=== PATIENT | male | born 1960 | race Caucasian/White ===

== ENCOUNTER 2020-07-21 10:43 | Emergency (ER) | payer OTHER ==
[~2020-07-21] VITALS: Ht 175.3 cm; Wt 80.3 kg
--- NOTE | 2020-07-21 10:59 | Emergency Room Report ---
History of Present Illness General Chief Complaint: Fever Source: Patient, EMS Present Illness HPI 59-year-old male history of HIV, hypertension, presents from half-way with fever/chills x1 day, no known aggravating relieving factors severity is moderate, constant patient endorses nausea, generalized lower abdominal pain achy in nature no diarrhea no dysuria, unable to really describe abdominal pain severity is mild, ongoing cannot state whether it appeared with a fever patient presents for evaluation and treatment Allergies: Coded Allergies: No Known Allergies (Unverified , 07/21/20) COVID-19 Screening Contact w/high risk pt: No Experienced COVID-19 symptoms?: Yes COVID-19 Testing performed RECREATION ADVISER: Yes - jul 15 COVID-19 Screening: Negative COVID-19 COVID-19 Testing Source: [facility] Patient History Past Medical History: see triage record Reviewed Nursing Documentation: PMH: Agreed; PSxH: Agreed Nursing Documentation-PMH Past Medical History: No History, Except For Hx Hypertension: Yes Hx Cancer: Yes - lung, kidney Review of Systems All Other Systems: negative except mentioned in HPI Physical Exam Vital Signs Date Time Temp Pulse Resp B/P (MAP) Pulse Ox O2 Delivery O2 Flow Rate FiO2 07/21/20 10:44 98.2 103 26 96/63 (74) 98 Nasal Cannula 2.0 Sp02 EP Interpretation: reviewed, normal General Appearance: well appearing, no apparent distress, alert Head: normocephalic, atraumatic Eyes: bilateral eye PERRL, bilateral eye EOMI ENT: uvula midline, moist mucus membranes Neck: supple, thyroid normal, supple/symm/no masses Respiratory: lungs clear, no respiratory distress, no retraction, no accessory muscle use Cardiovascular #1: normal peripheral pulses, regular rate, rhythm, no edema, no gallop, no murmur Gastrointestinal: non tender, soft, no guarding, no rebound Musculoskeletal: normal inspection Neurologic: alert, oriented x3 Psychiatric: mood/affect normal Skin: no rash, warm/dry Procedures Critical Care Time Critical Care Time Given the critical condition in which the patient arrived, the patient was immediately assessed by myself and the nurse, and cardiac monitoring initiated due to the potential for rapid decompensation of the patient's clinical condition. During the course of the patient's stay, I spent a considerable amount of time at the bedside performing serial re-evaluations of the patient's hemodynamic and clinical status because of the recognized potential threat to life or limb in this condition. I then had a chance to review not only all of the available current laboratory and radiographic studies obtained today, but I also reviewed old records available to me at the time. Additionally, any ancillary information available including asphalt raker records were reviewed. Sequential vital signs were obtained. Critical Care time of 31 minutes was performed exclusive of billable procedures. Medical Decision Making Diagnostic Impression: Primary Impression: Fever Qualified Codes: R50.9 - Fever, unspecified Additional Impressions: Anemia Qualified Codes: D64.9 - Anemia, unspecified Metastatic cancer Qualified Codes: C79.9 - Secondary malignant neoplasm of unspecified site ER Course 59-year-old male history of RCC, status post right partial and complete nephrectomy, HIV, spindle cell tumor of the lung, presents with generalized weakness, patient found to be anemic, CT brain shows metastatic lesions to the brain without any mass-effect Patient started on blood transfusion, cefepime and Vanco given for fever Initially patient to be transferred to [facility] however Dr. Nettles stated patient may be better suited where he received care initially [facility] [place] 1:56pm Laboratory Tests Test 07/21/20 11:10 07/21/20 13:10 White Blood Count 22.0 K/UL (4.8-10.8) H Red Blood Count 1.89 M/UL (4.70-6.10) L Hemoglobin 4.7 G/DL (14.2-18.0) *L Hematocrit 16.2 % (42.0-52.0) L Mean Corpuscular Volume 86 FL (80-99) Mean Corpuscular Hemoglobin 25.0 PG (27.0-31.0) L Mean Corpuscular Hemoglobin Concent 29.2 G/DL (32.0-36.0) L Red Cell Distribution Width 22.5 % (11.6-14.8) H Platelet Count 804 K/UL (150-450) H Mean Platelet Volume 4.0 FL (6.5-10.1) L Neutrophils (%) (Auto) % (45.0-75.0) Lymphocytes (%) (Auto) % (20.0-45.0) Monocytes (%) (Auto) % (1.0-10.0) Eosinophils (%) (Auto) % (0.0-3.0) Basophils (%) (Auto) % (0.0-2.0) Differential Total Cells Counted 100 Neutrophils % (Manual) 79 % (45-75) H Lymphocytes % (Manual) 10 % (20-45) L Monocytes % (Manual) 8 % (1-10) Eosinophils % (Manual) 3 % (0-3) Basophils % (Manual) 0 % (0-2) Band Neutrophils 0 % (0-8) Platelet Estimate Increased H Platelet Morphology See comment Giant Platelets Occasional Polychromasia 1+ Hypochromasia 2+ Anisocytosis 2+ Prothrombin Time 13.4 SEC (9.30-11.50) H Prothrombin Time INR 1.2 (0.9-1.1) H Activated Partial Thromboplast Time 27 SEC (23-33) Urine Color Pale yellow Urine Appearance Clear Urine pH 5 (4.5-8.0) Urine Specific Ming[place] 1.020 (1.005-1.035) Urine Protein 1+ (NEGATIVE) H Urine Glucose (UA) Negative (NEGATIVE) Urine Ketones 1+ (NEGATIVE) H Urine Blood Negative (NEGATIVE) Urine Nitrite Negative (NEGATIVE) Urine Bilirubin Negative (NEGATIVE) Urine Urobilinogen 8 MG/DL (0.0-1.0) H Urine Leukocyte Esterase Negative (NEGATIVE) Urine RBC 0 /HPF (0 - 0) Urine WBC 0-2 /HPF (0 - 0) Urine Squamous Epithelial Cells Occasional /LPF Urine Calcium Oxalate Crystals Occasional /LPF (NONE) Urine Bacteria Occasional /HPF (NONE) Sodium Level 134 MMOL/L (136-145) L Potassium Level 3.9 MMOL/L (3.5-5.1) Chloride Level 98 MMOL/L (98-107) Carbon Dioxide Level 28 MMOL/L (21-32) Anion Gap 8 mmol/L (5-15) Blood Urea Nitrogen 23 mg/dL (7-18) H Creatinine 1.3 MG/DL (0.55-1.30) Estimated Glomerular Filtration Rate 56.9 mL/min (>60) Glucose Level 120 MG/DL (74-106) H Lactic Acid Level 4.50 mmol/L (0.4-2.0) H 4.00 mmol/L (0.66-2.22) H Calcium Level 10.3 MG/DL (8.5-10.1) H Phosphorus Level 3.4 MG/DL (2.5-4.9) Magnesium Level 1.7 MG/DL (1.8-2.4) L Total Bilirubin 0.2 MG/DL (0.2-1.0) Aspartate Amino Transferase (AST) 25 U/L (15-37) Alanine Aminotransferase (ALT) 21 U/L (12-78) Alkaline Phosphatase 110 U/L (46-116) Total Creatine Kinase 8 U/L (26-308) L Creatine Kinase MB < 0.5 NG/ML (0.0-3.6) Creatine Kinase MB Relative Index 6.2 Troponin I 0.000 ng/mL (0.000-0.056) Pro-B-Type Natriuretic Peptide 699 pg/mL (0-125) H Total Protein 5.9 G/DL (6.4-8.2) L Albumin 1.3 G/DL (3.4-5.0) L Globulin 4.6 g/dL Albumin/Globulin Ratio 0.3 (1.0-2.7) L Lipase 115 U/L (73-393) Microbiology Date/Time Source Procedure Growth Status 07/21/20 11:10 Nasopharynx SARS-CoV-2 RdRp Gene Assay - Final Complete EKG Diagnostic Results Troponin ordered: Yes When was troponin ordered?: Jul 21, 2020 - 1056 EKG Time: 10:57 EP Interpretation: NSR, rate 100, QTc 417, no acute ST elevations, normal axis Rhythm Strip Diag. Results Rhythm Strip Time: 11:18 EP Interpretation: yes Rate: 97 Rhythm: NSR, no PVC's, no ectopy Chest X-Ray Diagnostic Results Chest X-Ray Diagnostic Results : Chest X-Ray Ordered: Yes # of Views/Limited/Complete: 1 View Indication: Chest Pain EP Interpretation: Yes Interpretation: no consolidation, no effusion, no pneumothorax, no acute cardiopulmonary disease Impression: No acute disease Electronically Signed by: Javier Reyes MD CT/MRI/US Diagnostic Results CT/MRI/US Diagnostic Results : Impression Procedure: CT Abdomen Pelvis w/Contrast Clinical Indication: Abdominal pain, weakness, dysuria, fever Technique: No oral contrast utilized, per emergency room physician request IV administration nonionic contrast. Venous phase spiral acquisition obtained through the abdomen and pelvis. Multiplanar reconstructions were generated. Total dose length product 313 mGycm. CTDIvol(s) 5 mGy. Dose reduction achieved using automated exposure control Comparison: none Findings: There is evidence of extensive disseminated malignancy. A staple line in the right retroperitoneum suggests prior right nephrectomy. However, there is a large mass occupying the right renal fossa that measures 10 x 6.7 x 9 cm, demonstrates evidence of central necrosis. At least 2 masses are seen within the mesentery, both of which surround small bowel but do not appear to result in obstruction. There are bilateral large adrenal masses. Tumor is also seen filling and distending the inferior vena cava, and also extending into the left renal vein. More cephalad, low-attenuation within the bilateral inferior vena cava and throughout the bilateral common iliac veins may reflect either thrombus or tumor. Numerous small nodules are seen within the mesentery. Another mass is seen more cephalad in the right retroperitoneum. The liver demonstrates a 3 cm mass posteriorly in segment 2. Another is seen adjacent to the falciform ligament. The gallbladder contains gallstones. The pancreas is unremarkable. The spleen is mildly enlarged, measuring 13.5 cm in diameter. The left kidney is unremarkable; note that the caval tumor does not appear to involve the peripheral left renal vein or the kidney. There is diffuse edema of the subcutaneous, mesenteric, and retroperitoneal fat. A 1.6 cm mass is seen in the right costophrenic sulcus. Very unusual ossific density is seen in the inferior posterior medial right lung, extending into the azygos esophageal recess. No bony osteolytic lesions are demonstrated. Lack of enteric contrast limits assessment of the GI tract. There is colonic diverticulosis. No evidence of diverticulitis. The appendix is not definitely visualized, there are no findings to suggest acute appendicitis. No free intraperitoneal gas. There is trace free intraperitoneal fluid, predominantly in the right paracolic gutter and over the dome of the liver The distal esophagus, stomach, duodenum are unremarkable. No small bowel distention despite the above-described extensive small bowel involvement with tumor. Impression: Evidence of extensive disseminated malignancy, as detailed above. Evidence of tumor within inferior vena cava and left renal vein. Low-attenuation material within the inferior vena cava and bilateral iliac veins upstream from this suggests either tumor or thrombosis, suspect the latter. Sonography may be useful to confirm if this is clinically relevant Unusual ossific density in the posterior medial right lung, possibly heterotopic ossification from prior insult. Correlate with clinical history Trace free intraperitoneal fluid Anasarca Diverticulosis The CT scanner at [facility] is accredited by the [employer] and the scans are performed using protocols designed to limit radiation exposure to as low as reasonably achievable to attain images of sufficient reso lution adequate for diagnostic evaluation. Dictated By: Jeyson Sanderson MD Electronically Signed By:Jeyson Sanderson MD Signed Date/Time07/21/20 3636 CC: Javier Reyes MD Procedure: CT Head no Contrast Indications: Headache and hypertension Technique: Spiral acquisitions obtained through the brain. Angled axial and coronal 5 x 5 mm slices were reconstructed. Total dose length product 1152 mGycm. CTDI vol(s) 53 mGy. Dose reduction achieved using automated exposure control Comparison: None. Findings: In the left parietal lobe, there is a round mass which measures 2.6 cm in diameter. This is isoattenuating or slightly hyperattenuating to baird matter peripherally, demonstrates central low attenuation. There is extensive an intense surrounding vasogenic edema. This results in local mass effect, with attenuation of the adjacent sulci and ipsilateral lateral ventricle. In the right parasagittal high frontal lobe, there is a round 16 mm mass which demonstrates similar morphology to the parietal mass. This also demonstrates intense surrounding vasogenic edema. There is also suggestion of a 9 mm mass in the high left parietal lobe at the baird-white junction just cephalad to the superior extent of the vasogenic edema from the parietal mass. There is also questionably a 9 mm left frontal mass on the opposite side of the falx from the large right frontal mass There is a lentiform extra-axial mass in the right frontal region which measures 3.7 x 1.8 x 3.4 cm. This is slightly hypoattenuating to white matter. This results in local mass effect, inwardly displacing the right frontal lobe. No acute intracranial hemorrhage. No midline shift. The basilar cisterns are open. The mastoids are clear. The calvarium is intact. Visualized orbits and sinuses are unremarkable Impression: Multiple intra-axial masses, as described. Per discussion with referring physician, patient has known history of metastatic cancer Right frontal extra-axial mass. Morphology is typical of a meningioma, although the attenuation of the lesion is not. Correlate with clinical history and findings, consider MRI for better characterization if this has not been worked up previously and is considered clinically relevant No acute intracranial bleed. There is local mass effect demonstrated but no significant midline shift or evidence of herniation Findings discussed by phone with Dr. Reyes at the time of interpretation The CT scanner at [facility] is accredited by the [employer] and the scans are performed using protocols designed to limit radiation exposure to as low as reasonably achievable to attain images of sufficient resolution adequate for diagnostic evaluation. Dictated By: Jeyson Sanderson MD Electronically Signed By:Jeyson Sanderson MD Signed Date/Time07/21/20 1318 CC: Javier Reyes MD Last Vital Signs Date Time Temp Pulse Resp B/P (MAP) Pulse Ox O2 Delivery O2 Flow Rate FiO2 07/21/20 10:44 98.2 103 26 96/63 (74) 98 Nasal Cannula 2.0 Disposition: SHORT-TERM HOSP Condition: Critical Javier Reyes MD Jul 21, 2020 10:59
[2020-07-21 11:00] VITALS: BP 102/61
--- NOTE | 2020-07-21 11:00 | NUR ---
ED Nurse Note: pt presents to ED from [facility] for fever and bilat pedal edema. per EMS, pt was found to have a fever of 100.9 at the facility this AM, sNF staff administered 650 mg of tylenol, pt's temp on triage was 98.2. pt is noted to have bilat pitting edema with very weak pulses. pt is also c/o 8/10 abd pain. he is on 2L NC satting at 100%, pt reports that he is at the facility for REhab due to blood clots in both legs causing the edema. pt is AOx4, bed bound, able to follow commands, answer questions and make needs known to staff. no acute distress is noted at this time.
[2020-07-21] MEDS ORDERED: Omnipaque-300 100ml vial INJ PRN (11:30)
[2020-07-21] MEDS ORDERED: Morphine Sulfate 4mg/ml Inj (IV USE ONLY) IVP ONE ×2 (11:30→15:30)
--- NOTE | 2020-07-21 11:40 | NUR ---
ED Nurse Note: pt is noted to have an open wound to coccyx that has a white/pale wound bed no bleeding noted but skin is not intact over this area
--- NOTE | 2020-07-21 11:42 | NUR ---
ED Nurse Note: pt reports he has had "black smelly" soft stools off and on for 2 weeks since he was at [facility], pt has not had a BM yet here
[2020-07-21 11:48] LABS: HEMATOCRIT 16.2 % (42.0-52.0); MEAN CORPUSCULAR VOLUME 86 FL (80-99); PLATELET COUNT 804 K/UL (150-450); RED BLOOD COUNT 1.89 M/UL (4.70-6.10); RED CELL DISTRIBUTION WIDTH 22.5 % (11.6-14.8)
[2020-07-21 11:49] LABS: HEMOGLOBIN 4.7 G/DL (14.2-18.0)
[2020-07-21 11:55] LABS: ANION GAP 8 mmol/L (5-15); APPEARANCE,URINE CLEAR; BILIRUBIN, URINE NEGATIVE (NEGATIVE); BLOOD UREA NITROGEN 23 mg/dL (7-18); CALCIUM 10.3 MG/DL (8.5-10.1); CARBON DIOXIDE 28 MMOL/L (21-32); CHLORIDE 98 MMOL/L (98-107); COLOR,URINE PALE YELLOW; CREATININE 1.3 MG/DL (0.55-1.30); GLUCOSE, URINE (UA) NEGATIVE (NEGATIVE); INR 1.2 (0.9-1.1); KETONES,URINE 1+ (NEGATIVE); LEUKOCYTE ESTERASE ,URINE NEGATIVE (NEGATIVE); NITRITE,URINE NEGATIVE (NEGATIVE); PH,URINE 5 (4.5-8.0); POTASSIUM 3.9 MMOL/L (3.5-5.1); PROTEIN,URINE 1+ (NEGATIVE); SODIUM 134 MMOL/L (136-145); UROBILINOGEN,URINE 8 MG/DL (0.0-1.0)
[2020-07-21 12:09] LABS: ALANINE AMINOTRANSFERASE 21 U/L (12-78); ALBUMIN 1.3 G/DL (3.4-5.0); ALBUMIN/GLOBULIN RATIO 0.3 (1.0-2.7); ALKALINE PHOSPHATASE 110 U/L (46-116); ASPARTATE AMINO TRANSFERASE 25 U/L (15-37); BILIRUBIN,TOTAL 0.2 MG/DL (0.2-1.0); CKMB < 0.5 NG/ML (0.0-3.6); CREATINE KINASE 8 U/L (26-308); PHOSPHORUS 3.4 MG/DL (2.5-4.9)
[2020-07-21] MEDS ORDERED: Vancomycin 1 GM in NS 275 ML IVPB ONE (12:30)
[2020-07-21] MEDS ORDERED: Cefepime HCl 1 GM in D5W 55 ML IVPB ONE (12:30)
--- NOTE | 2020-07-21 12:34 | NUR ---
ED Nurse Note: pt transported to CT via gurney with IV fluids and abx running per ERMD orders
[2020-07-21 12:51] VITALS: BP 92/65
--- NOTE | 2020-07-21 13:23 | Diagnostic Imaging Report ---
Indications: Headache and hypertension Technique: Spiral acquisitions obtained through the brain. Angled axial and coronal 5 x 5 mm slices were reconstructed. Total dose length product 1152 mGycm. CTDI vol(s) 53 mGy. Dose reduction achieved using automated exposure control Comparison: None. Findings: In the left parietal lobe, there is a round mass which measures 2.6 cm in diameter. This is isoattenuating or slightly hyperattenuating to baird matter peripherally, demonstrates central low attenuation. There is extensive an intense surrounding vasogenic edema. This results in local mass effect, with attenuation of the adjacent sulci and ipsilateral lateral ventricle. In the right parasagittal high frontal lobe, there is a round 16 mm mass which demonstrates similar morphology to the parietal mass. This also demonstrates intense surrounding vasogenic edema. There is also suggestion of a 9 mm mass in the high left parietal lobe at the baird-white junction just cephalad to the superior extent of the vasogenic edema from the parietal mass. There is also questionably a 9 mm left frontal mass on the opposite side of the falx from the large right frontal mass There is a lentiform extra-axial mass in the right frontal region which measures 3.7 x 1.8 x 3.4 cm. This is slightly hypoattenuating to white matter. This results in local mass effect, inwardly displacing the right frontal lobe. No acute intracranial hemorrhage. No midline shift. The basilar cisterns are open. The mastoids are clear. The calvarium is intact. Visualized orbits and sinuses are unremarkable Impression: Multiple intra-axial masses, as described. Per discussion with referring physician, patient has known history of metastatic cancer Right frontal extra-axial mass. Morphology is typical of a meningioma, although the attenuation of the lesion is not. Correlate with clinical history and findings, consider MRI for better characterization if this has not been worked up previously and is considered clinically relevant No acute intracranial bleed. There is local mass effect demonstrated but no significant midline shift or evidence of herniation Findings discussed by phone with Dr. Reyes at the time of interpretation The CT scanner at [facility] is accredited by the [employer] and the scans are performed using protocols designed to limit radiation exposure to as low as reasonably achievable to attain images of sufficient resolution adequate for diagnostic evaluation.
--- NOTE | 2020-07-21 14:00 | NUR ---
ED Nurse Note: blood product verified by second RN Mahogany. transfusion initiated per protocol, will cont to monitor
--- NOTE | 2020-07-21 14:09 | Diagnostic Imaging Report ---
Clinical Indication: Abdominal pain, weakness, dysuria, fever Technique: No oral contrast utilized, per emergency room physician request IV administration nonionic contrast. Venous phase spiral acquisition obtained through the abdomen and pelvis. Multiplanar reconstructions were generated. Total dose length product 313 mGycm. CTDIvol(s) 5 mGy. Dose reduction achieved using automated exposure control Comparison: none Findings: There is evidence of extensive disseminated malignancy. A staple line in the right retroperitoneum suggests prior right nephrectomy. However, there is a large mass occupying the right renal fossa that measures 10 x 6.7 x 9 cm, demonstrates evidence of central necrosis. At least 2 masses are seen within the mesentery, both of which surround small bowel but do not appear to result in obstruction. There are bilateral large adrenal masses. Tumor is also seen filling and distending the inferior vena cava, and also extending into the left renal vein. More cephalad, low-attenuation within the bilateral inferior vena cava and throughout the bilateral common iliac veins may reflect either thrombus or tumor. Numerous small nodules are seen within the mesentery. Another mass is seen more cephalad in the right retroperitoneum. The liver demonstrates a 3 cm mass posteriorly in segment 2. Another is seen adjacent to the falciform ligament. The gallbladder contains gallstones. The pancreas is unremarkable. The spleen is mildly enlarged, measuring 13.5 cm in diameter. The left kidney is unremarkable; note that the caval tumor does not appear to involve the peripheral left renal vein or the kidney. There is diffuse edema of the subcutaneous, mesenteric, and retroperitoneal fat. A 1.6 cm mass is seen in the right costophrenic sulcus. Very unusual ossific density is seen in the inferior posterior medial right lung, extending into the azygos esophageal recess. No bony osteolytic lesions are demonstrated. Lack of enteric contrast limits assessment of the GI tract. There is colonic diverticulosis. No evidence of diverticulitis. The appendix is not definitely visualized, there are no findings to suggest acute appendicitis. No free intraperitoneal gas. There is trace free intraperitoneal fluid, predominantly in the right paracolic gutter and over the dome of the liver The distal esophagus, stomach, duodenum are unremarkable. No small bowel distention despite the above-described extensive small bowel involvement with tumor. Impression: Evidence of extensive disseminated malignancy, as detailed above. Evidence of tumor within inferior vena cava and left renal vein. Low-attenuation material within the inferior vena cava and bilateral iliac veins upstream from this suggests either tumor or thrombosis, suspect the latter. Sonography may be useful to confirm if this is clinically relevant Unusual ossific density in the posterior medial right lung, possibly heterotopic ossification from prior insult. Correlate with clinical history Trace free intraperitoneal fluid Anasarca Diverticulosis The CT scanner at [facility] is accredited by the [employer] and the scans are performed using protocols designed to limit radiation exposure to as low as reasonably achievable to attain images of sufficient resolution adequate for diagnostic evaluation.
--- NOTE | 2020-07-21 14:15 | NUR ---
ED Nurse Note: no adverse reaction to blood transfusion noted. rate increased per hospital protocol. pt tolerating well, signed paperwork for transfer, waiting for ambulance
[2020-07-21 14:52] VITALS: BP 91/70
--- NOTE | 2020-07-21 15:20 | NUR ---
ED Nurse Note: pt c/o pain returning, asking for pain meds. Dr. Rodriguez gave verbal order for 4mg Morphine IVP, order readback and verified. RN inputted order into eMAR
--- NOTE | 2020-07-21 15:38 | NUR ---
ED Nurse Note: report given to MARLENY Jarrett at [facility]. [facility] unit #[id number] here to transfer pt
[2020-07-21 15:45] VITALS: BP 91/70
--- NOTE | 2020-07-21 16:40 | Diagnostic Imaging Report ---
Indication: Cough Technique: One view of the chest Comparison: none Findings: There is some atelectasis at both lung bases. Unusual ossific density projected adjacent to the right hilum is also seen on subsequent CT scan. The right hemidiaphragm is elevated. The lungs and pleural spaces are otherwise clear. The heart size is normal. Impression: No acute process
--- NOTE | 2020-07-25 15:10 | Cardiology Report ---
APPROVED REPORT EKG Measurement Heart [id number] <Conclusion> Sinus tachycardia Nonspecific T wave abnormality Abnormal ECG
== END 2020-07-21 15:45 | disposition short-term general hospital (02) ==
LOC: EDBD 10:43 → EMR 11:10
DX: R50.9 Fever, unspecified (principal); D64.9 Anemia, unspecified; I10 Essential (primary) hypertension; Z85.118 Personal history of other malignant neoplasm of bronchus and lung; Z85.528 Personal history of other malignant neoplasm of kidney; B20 Human immunodeficiency virus [HIV] disease; Z90.5 Acquired absence of kidney; C79.31 Secondary malignant neoplasm of brain; K57.90 Diverticulosis of intestine, part unspecified, without perforation or abscess without bleeding; R05 Cough; J98.11 Atelectasis
CPT/HCPCS: 36415; 70450; 71045; 74177; 80053; 81003; 82550; 82553; 83605; 83690; 83735; 83880; 84100; 84484; 85007; 85025; 85610; 85730; 86850; 86900; 86901; 86920; 87040; 93005; 96365; 96368; 96375; 96376; J0692; J2270; J2405; J3370; J7030; J7050; P9016; Q9965; U0002; Z7502; 99291